=== PATIENT | male | born 1965 | race Caucasian/White ===

== ENCOUNTER 2017-01-11 19:09 | Emergency (ER) | payer OTHER ==
[~2017-01-11] VITALS: Ht 180.3 cm; Wt 88.8 kg
[~2017-01-11 19:09] MED LIST: IBUP-1105 PO; OMEG10007 PO; OXYC7.5T78 PO
[2017-01-11 19:10] VITALS: TEMP 36.6; Ht 180.3 cm; Wt 88.8 kg
[2017-01-11] MEDS ORDERED: LPD600 PO (19:24)
[2017-01-11] MEDS ORDERED: NAPR1TAB9 PO (19:38)
[2017-01-11] MEDS ORDERED: FLEXERIL HOME PACK 10 MG VIAL PO ONE (19:45)
[2017-01-11] MEDS ORDERED: PERCOCET HOME PACK PO ONE (19:45)
[2017-01-11] MEDS ORDERED: OXYC-57 PO (19:56)
[2017-01-11] MEDS ORDERED: CYCL10TA6 PO (19:56)
--- NOTE | 2017-01-11 19:57 | EMERGENCY ROOM VISIT NOTE ---
ED Visit Note First contact with patient: 19:13 CHIEF COMPLAINT: Low back pain HISTORY OF PRESENT ILLNESS: This 51-year-old male patient presents to the emergency department ambulatory complaining of pain in the low back which began when he stood up from the couch this morning. The patient states that he does have chronic mild low back pain, but he had an acute onset of severe pain in the low back when sitting up from the couch this morning. The pain has gradually progressed throughout the day. The patient notes the pain as sharp and an 8/10. The pain radiates The patient has used a heating pad without relief of the pain. The patient denies any loss of control of their bowel or bladder functions. There has been no leg numbness or weakness, and no change in sensation. No nausea or vomiting or abdominal pain. No chest pain or shortness of breath. No dysuria or increased urinary frequency. The patient does have a history of neck problems and has been seen by orthopedics for this in the past. REVIEW OF SYSTEMS: A review of systems was performed with positives and pertinent negatives listed in the history of present illness. All other systems were reviewed and are negative. ALLERGIES: No known drug allergies MEDICATIONS: See med list PMH: No significant past medical history. SOCIAL HISTORY: The patient lives locally with family. PHYSICAL EXAM: VITALS: Vitals are noted on the nurse's note and reviewed by myself. Vital signs stable. GENERAL: This is a 51-year-old female, in no acute distress, nondiaphoretic, well-developed well-nourished. SKIN: The skin was without rashes, erythema, edema, or bruising. Capillary refill less than 2 seconds. NECK: Supple without nuchal rigidity. No cervical spine tenderness. No paraspinous muscle tenderness. HEART: Regular rate and rhythm without murmurs gallops or rubs. LUNGS: Clear to auscultation bilaterally without wheezes, rales or rhonchi. ABDOMEN: Positive bowel sounds x 4. Normal tympanic percussion. Soft, nontender, without masses or organomegaly. Gutierrez sign negative. MUSCULOSKELETAL: No muscle atrophy, erythema, or edema noted of the back. There is no tenderness over the lumbar spinous processes. There is tenderness over the lumbar paraspinous muscles bilaterally. There is no tenderness over the thoracic spine or paraspinous muscles. There are no muscle spasms present. The patient is slow to move around with maximum tenderness with flexion. Negative straight leg raise test. NEURO: Patient was alert and oriented to person place and time. Normal sensation to light and sharp touch. Deep tendon reflexes 2+ in the lower extremities. Dorsalis pedis pulse 2+ bilaterally. Strength 5/5 and equal in the bilateral lower extremities. EMERGENCY DEPARTMENT COURSE: The patient was evaluated as above. His history is consistent with a lumbar muscle spasm. He was offered pain medication in the emergency department by refused. There is no indication for further imaging at this time. Nothing to suggest cord compression or cauda equina syndrome. The patient will be placed on Percocet and Flexeril and was instructed to follow-up with his established orthopedic provider. The [place] prescription drug monitoring program was queried and Norflex were identified. He will return with any new/concerning symptoms. The patient verbalized understanding of my assessment and treatment plan and was discharged home in good condition. DIAGNOSIS: Lumbar back pain Problem List Medical Problems: (1) Cellulitis Of Leg Status: Resolved Current/Historical Medications Scheduled Cyclobenzaprine Hcl (Flexeril), 10 MG PO TID Gemfibrozil (Gemfibrozil), 600 MG PO BID Naproxen (Aleve), 440 MG PO BID Scheduled PRN Oxycodone/Acetaminophen 5MG/325MG (Percocet 5MG/325MG), 1-2 TABS PO Q4H PRN for Pain Allergies Coded Allergies: No Known Allergies (Unverified , 01/11/17) Vital Signs Date Time Temp Pulse Resp B/P Pulse Ox O2 Delivery O2 Flow Rate FiO2 01/11/17 20:05 97 20 146/89 98 Room Air 01/11/17 19:10 36.6 105 20 151/83 98 Room Air Medications Administered Medications (Trade) Dose Ordered Sig/Maritza Route Start Time Stop Time Status Last Admin Dose Admin Oxycodone/ Acetaminophen (Percocet 5/ 325MG Home Pack) 1 homepack UD ONCE PO 01/11/17 19:45 01/11/17 19:46 DC 01/11/17 19:45 1 HOMEPACK Cyclobenzaprine HCl (FLEXERIL 10MG Home Pack) 1 homepack UD ONCE PO 01/11/17 19:45 01/11/17 19:46 DC 01/11/17 19:45 1 HOMEPACK Departure Information Impression Primary Impression: Low back pain Dispostion Home / Self-Care Condition GOOD Prescriptions Cyclobenzaprine Hcl (FLEXERIL) 10 Mg Tab 10 MG PO TID for 5 Days, #15 TAB Prov: Evelyn Amaya PA-C 01/11/17 Oxycodone/Acetaminophen 5MG/325MG (PERCOCET 5MG/325MG) Tab 1-2 TABS PO Q4H Y for Pain, #15 TAB For Initial Treatment Prov: Evelyn Amaya PA-C 01/11/17 Referrals Chika Craig (PCP) Patient Instructions My [facility] Additional Instructions You have been treated in the Emergency Department for Back Pain. You have been prescribed Percocet to be used for pain control. This is a narcotic medication. You cannot drive or consume alcohol while on this medicine. This medicine should only be used for pain that cannot be controlled with [id number]-[id number] pain medicines. You have been prescribed Flexeril (cyclobenzaprine) 1-2 tabs orally, three times per day. Do NOT exceed 30 mg (6 tabs) per day. Take your first dose at bedtime as it can make you drowsy. Always take all medications as prescribed. For pain control, you can use the following [id number] medicines (if >12 yo): - Regular strength (325mg/tab) Tylenol (acetaminophen) 2 tabs every 4-6 hours as needed. Do not exceed 12 tablets in a 24 hour period. Avoid taking more than 4 grams (4000 mg) of Tylenol per day. This includes any other sources of acetaminophen you may take on a regular basis. - Regular strength (200 mg/tab) Advil (ibuprofen) 1-2 tabs every 4-6 hours as needed. Do not exceed a dose of 3200 mg per day. If this is an acute injury, ice can be applied to the area of pain for the first 3 days to help decrease pain and inflammation. After the first 3 days, a heating pad can be used over the area for continued soothing relief. You should schedule a follow-up appointment in 2-3 days with your Primary Care Provider for further evaluation and treatment of your back pain. Return to the Emergency Department if your current symptoms worsen despite treatment course outlined above, or if you develop any of the following symptoms : intractable pain despite aforementioned treatment course, loss of control of your bowel or bladder, numbness or tingling in your groin, or development of a fever. Problem Qualifiers Primary Impression: Low back pain Chronicity: acute Back pain laterality: bilateral Sciatica presence: with sciatica Sciatica laterality: sciatica of left side Qualified Codes: M54.42 - Lumbago with sciatica, left side
[2017-01-11 20:05] VITALS: BP 146/89; PULSE 97; O2SAT 98
== END 2017-01-11 20:06 | disposition home or self-care (01) ==
LOC: C.EDB 19:10 → C.EDD 20:06
DX: M54.2 Cervicalgia (principal); Z86.19 Personal history of other infectious and parasitic diseases; Z88.8 Allergy status to other drugs, medicaments and biological substances

== ENCOUNTER → 2017-01-29 | Outpatient (CLI) | payer OTHER ==
[~2017-01-29] MED LIST changes: -IBUP-1105 PO; +LPD600 PO; +NAPR1TAB9 PO; -OMEG10007 PO; +OXYC-57 PO; -OXYC7.5T78 PO
[2017-01-29 13:36] LABS: ALKALINE PHOSPHATASE 78 U/L (45-117); ALT/SGPT 23 U/L (12-78); AST/SGOT 16 U/L (15-37); CHOLESTEROL 185 mg/dl (0-200); CHOLESTEROL/HDL RATIO 4.4; HDL CHOLESTEROL 42 mg/dl; LDL CHOLESTEROL CALCULATED 113 mg/dl; TRIGLYCERIDES 149 mg/dl (0-150); VERY LOW DENSITY LIPOPROT CALC 30 mg/dl
== END | disposition home or self-care (01) ==
LOC: C.LABMFLN 08:22
PROVIDERS: ATTEND Physician Assistant
DX: E78.1 Pure hyperglyceridemia (principal)

== ENCOUNTER → 2017-12-02 | Outpatient (CLI) | payer OTHER ==
[~2017-12-02] MED LIST changes: -OXYC-57 PO
--- NOTE | 2017-12-04 15:16 | POLYSOMNOGRAPH REPORT ---
CLINICAL DATA: A 52-year-old male with BMI of 32.4 referred by myself for a sleep study. He has a history of sleep apnea and had a PSG done at the [facility], but had a poor experience. He is currently on auto CPAP and wishes to determine the severity of his sleep apnea. 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 His Lyons sleepiness score is 6/24. On the evening of 12/02/2017, a home sleep apnea test was performed using a [employer] type 3 monitor. RECORDING RESULTS: Total recording time was 10 hours. The patient's monitoring time and estimated sleep time was 6.7 hours. RESPIRATORY DATA: Severe sleep apnea was documented. The ALEXEI was 46.7. There were 177 obstructive and 7 mixed apneic episodes. There were 131 hypopneic episodes. The longest respiratory event was 41 seconds. OXIMETRY DATA: Nocturnal hypoxemia was seen. Oxygen hannah was 76%. Mean saturation was 91%. Time below 89% was 44 minutes. HEART RATE DATA: Heart rates ranged from 62-79 beats per minute. SNORING DATA: Snoring was recorded throughout the night. IMPRESSION: Severe sleep apnea/hypopnea with diagnostic respiratory event index (ALEXEI) of 46.7 with nocturnal hypoxemia. RECOMMENDATIONS: The patient should continue to use CPAP therapy based on this sleep study. MTDD
== END | disposition home or self-care (01) ==
LOC: C.NEUR 08:22
PROVIDERS: ATTEND Internal Medicine Pulmonary Disease
DX: G47.33 Obstructive sleep apnea (adult) (pediatric) (principal)

== ENCOUNTER → 2018-01-27 | Outpatient (CLI) | payer OTHER | END | disposition home or self-care (01) | LOC: C.LABMFLN 08:09 | PROVIDERS: ATTEND Family Medicine | DX: E78.1 Pure hyperglyceridemia (principal); Z12.5 Encounter for screening for malignant neoplasm of prostate ==